=== PATIENT | female | born 1960 | race Caucasian/White ===

== ENCOUNTER 2022-07-15 13:08 | Inpatient (IN) | payer OTHER ==
[~2022-07-15] VITALS: Ht 157.5 cm; Wt 93.0 kg
[2022-07-15] MEDS ORDERED: SODIUM CHLORIDE FLUSH 10 ML SYR IV PRN (13:45)
[2022-07-15 13:50] LABS: BASOPHILS # (AUTO) 0.1 (0.0-0.1); BASOPHILS % 0.7 % (0.0-1.0); EOSINOPHILS # (AUTO) 0.2 (0.0-0.4); EOSINOPHILS % 1.4 % (0.0-6.0); LYMPHOCYTES # (AUTO) 2.1 (1.0-3.2); LYMPHOCYTES % 11.9 % (18.0-39.1); MEAN CORPUSCULAR HEMOGLOBIN 29.3 pg (28-32); MEAN CORPUSCULAR HGB CONC 31.4 g/dL (31-35); MEAN CORPUSCULAR VOLUME 93.1 fL (81-99); MONOCYTES # (AUTO) 0.9 (0.2-0.8); MONOCYTES % 5.1 % (4.4-11.3); NEUTROPHILS # (AUTO) 14.1 (2.1-6.9); NEUTROPHILS % 80.6 % (38.7-80.0); PLATELET COUNT 410 x10e3/uL (140-360); RED BLOOD COUNT 3.76 x10e6/uL (3.6-5.1); RED CELL DISTRIBUTION WIDTH 13.4 % (11.7-14.4)
[2022-07-15 14:01] LABS: ALBUMIN 2.1 g/dL (3.5-5.0); ALBUMIN/GLOBULIN RATIO 0.3 (0.8-2.0); ANION GAP 13.6 mmol/L (8-16); CALCIUM 8.8 mg/dL (8.4-10.2); CREATININE, SERUM 3.2 mg/dL (0.57-1.11); POTASSIUM 4.6 mmol/L (3.5-5.1)
[2022-07-15] MEDS ORDERED: CLOPIDOGREL BISULFATE 300 MG TAB-DO NOT STOCK PO ONE (14:45)
[2022-07-15] MEDS ORDERED: ASPIRIN 81 MG CHEW TAB PO ONE ×2 (14:45→15:00)
[2022-07-15] MEDS ORDERED: CEFTRIAXONE 1 GM VIAL IV ONE (14:45)
[2022-07-15] MEDS ORDERED: CLOPIDOGREL BISULFATE 75 MG TAB PO ONE (14:45)
[2022-07-15] MEDS ORDERED: SODIUM CHLORIDE 0.9% 500ML 500 ML IV ONE (14:45)
[2022-07-15] MEDS ORDERED: SODIUM CHLORIDE FLUSH 10 ML SYR INJ PRN (15:00)
[2022-07-15] MEDS ORDERED: ONDANSETRON HCL INJ 2MG/ML 2ML 2 MG/ML VIAL IV PRN (15:00)
[2022-07-15] MEDS ORDERED: Vancomycin IV 1 GM in SODIUM CHLORIDE 0.9% 250ML 250 ML IV ONE (15:00)
[2022-07-15 15:42] LABS: CREATINE KINASE MB 2.8 ng/mL (0-5.0)
[2022-07-15] MEDS ORDERED: FUROSEMIDE INJ 10 MG/ML 4 ML VIAL IV ONE (17:00)
[2022-07-15 20:00] VITALS: BP 130/63; PULSE 96; RESP 17; TEMP 98.4; O2SAT 98
[2022-07-15] MEDS ORDERED: METOPROLOL TARTRATE INJ 1 MG/ML VIAL IV PRN (23:30)
[2022-07-15] MEDS ORDERED: HYDRALAZINE HCL 20 MG/ML VIAL IV PRN (23:30)
[2022-07-16 00:38] VITALS: BP 148/72; PULSE 96; RESP 17; TEMP 98; O2SAT 98
[2022-07-16 04:53] VITALS: BP 145/75; PULSE 88; RESP 17; TEMP 97.8; O2SAT 96
[2022-07-16 06:01] LABS: CLARITY,URINE SL CLOUDY (CLEAR); COLOR,URINE YELLOW (YELLOW); KETONES,URINE NEGATIVE (NEGATIVE); LEUKOCYTE ESTERASE ,URINE NEGATIVE (NEGATIVE); NITRITE,URINE NEGATIVE (NEGATIVE); PROTEIN,URINE DIPSTICK >=300 (NEGATIVE); URINE UROBILINOGEN 0.2 mg/dL (0.2 - 1)
[2022-07-16 06:02] LABS: BACTERIA,URINE MANY /HPF; EPITHELIAL CELLS,URINE MANY /LPF
[2022-07-16 07:41] LABS: BASOPHILS # (AUTO) 0.1 (0.0-0.1); EOSINOPHILS # (AUTO) 0.3 (0.0-0.4); EOSINOPHILS % 2.3 % (0.0-6.0); HEMATOCRIT 33.1 % (34.2-44.1); HEMOGLOBIN 9.8 g/dL (12.0-16.0); LYMPHOCYTES # (AUTO) 2.7 (1.0-3.2); LYMPHOCYTES % 20.1 % (18.0-39.1); MEAN CORPUSCULAR HEMOGLOBIN 28.2 pg (28-32); MEAN CORPUSCULAR HGB CONC 29.6 g/dL (31-35); MEAN CORPUSCULAR VOLUME 95.1 fL (81-99); MONOCYTES # (AUTO) 0.9 (0.2-0.8); MONOCYTES % 6.6 % (4.4-11.3); NEUTROPHILS # (AUTO) 9.5 (2.1-6.9); NEUTROPHILS % 69.6 % (38.7-80.0); PLATELET COUNT 374 x10e3/uL (140-360); RED BLOOD COUNT 3.48 x10e6/uL (3.6-5.1); RED CELL DISTRIBUTION WIDTH 13.6 % (11.7-14.4)
[2022-07-16 08:06] LABS: CREATINE KINASE MB 2.2 ng/mL (0-5.0)
[2022-07-16 08:08] LABS: CHOL/HDL RATIO 3.4 (3.0-3.6); MAGNESIUM 1.7 MG/DL (1.3-2.1); PHOSPHORUS 4.4 MG/DL (2.3-4.7)
[2022-07-16 08:11] LABS: ALBUMIN 1.8 g/dL (3.5-5.0); ALBUMIN/GLOBULIN RATIO 0.3 (0.8-2.0); ANION GAP 13.3 mmol/L (8-16); CALCIUM 8.4 mg/dL (8.4-10.2); CREATININE, SERUM 3.11 mg/dL (0.57-1.11); POTASSIUM 4.3 mmol/L (3.5-5.1)
[2022-07-16 09:01] VITALS: BP 151/73; PULSE 92; RESP 20; TEMP 97.9; O2SAT 97
[2022-07-16] MEDS: SODIUM BICARBONATE 650 MG TAB PO SCH ×2 (11:30→17:44)
[2022-07-16 12:29] LABS: CREATININE,URINE RANDOM 61.06 mg/dL (47-110)
[2022-07-16 13:02] VITALS: BP 152/77; PULSE 84; RESP 16; TEMP 97.8; O2SAT 99
[2022-07-16 14:15] LABS: TOTAL PROTEIN, URINE 1120.6 mg/dL (1-14)
[2022-07-16] MEDS: FUROSEMIDE 40 MG TAB PO SCH (17:43)
[2022-07-16 20:00] VITALS: BP 152/79; PULSE 98; RESP 17; TEMP 98.9; O2SAT 97
[2022-07-16] MEDS: ATORVASTATIN 40 MG TAB PO SCH (21:21)
[2022-07-16] MEDS ORDERED: DEXTROSE 50% SYRINGE 50 ML IV PRN (22:15)
[2022-07-17] VITALS (7 sets, daily range): BP systolic 136–169; BP diastolic 67–80; PULSE 86–98; RESP 17–21; TEMP 97.7–98.7; O2SAT 96–100
[2022-07-17 06:01] LABS: BASOPHILS # (AUTO) 0.1 (0.0-0.1); BASOPHILS % 0.7 % (0.0-1.0); EOSINOPHILS # (AUTO) 0.3 (0.0-0.4); EOSINOPHILS % 2.2 % (0.0-6.0); HEMATOCRIT 29.1 % (34.2-44.1); HEMOGLOBIN 8.9 g/dL (12.0-16.0); LYMPHOCYTES # (AUTO) 3.2 (1.0-3.2); LYMPHOCYTES % 23.7 % (18.0-39.1); MEAN CORPUSCULAR HEMOGLOBIN 28.3 pg (28-32); MEAN CORPUSCULAR HGB CONC 30.6 g/dL (31-35); MEAN CORPUSCULAR VOLUME 92.7 fL (81-99); MONOCYTES % 7.1 % (4.4-11.3); NEUTROPHILS # (AUTO) 8.9 (2.1-6.9); NEUTROPHILS % 65.9 % (38.7-80.0); PLATELET COUNT 350 x10e3/uL (140-360); RED BLOOD COUNT 3.14 x10e6/uL (3.6-5.1); RED CELL DISTRIBUTION WIDTH 13.3 % (11.7-14.4)
[2022-07-17 06:30] LABS: ANION GAP 13.2 mmol/L (8-16); CALCIUM 8.1 mg/dL (8.4-10.2); CREATININE, SERUM 3.24 mg/dL (0.57-1.11); POTASSIUM 4.2 mmol/L (3.5-5.1)
[2022-07-17] MEDS: FUROSEMIDE 40 MG TAB PO SCH (10:13)
[2022-07-17] MEDS: SODIUM BICARBONATE 650 MG TAB PO SCH ×2 (10:13→16:41)
[2022-07-17] MEDS: ASPIRIN 81 MG ENTERIC COATED PO SCH (10:13)
[2022-07-17] MEDS: LIDOCAINE 4% PATCH TP SCH (10:14)
[2022-07-17] MEDS: INSULIN REGULAR, HUMAN 100 UNIT/1 ML SQ SCH ×2 (16:16→21:30)
[2022-07-17] MEDS: ATORVASTATIN 40 MG TAB PO SCH (21:25)
[2022-07-18] VITALS (9 sets, daily range): BP systolic 146–166; BP diastolic 70–86; PULSE 68–100; RESP 17–20; TEMP 98.3–98.8; O2SAT 95–100
[2022-07-18] MEDS: INSULIN REGULAR, HUMAN 100 UNIT/1 ML SQ SCH ×4 (08:22→20:39)
[2022-07-18] MEDS: LIDOCAINE 4% PATCH TP SCH (08:31)
[2022-07-18] MEDS: ASPIRIN 81 MG ENTERIC COATED PO SCH (08:32)
[2022-07-18] MEDS: FUROSEMIDE 40 MG TAB PO SCH (08:32)
[2022-07-18] MEDS: AMLODIPINE BESYLATE 5 MG TAB PO SCH (08:32)
[2022-07-18] MEDS: SODIUM BICARBONATE 650 MG TAB PO SCH ×2 (08:32→17:27)
[2022-07-18 10:22] LABS: ANION GAP 16.1 mmol/L (8-16); CALCIUM 8.6 mg/dL (8.4-10.2); CREATININE, SERUM 3.05 mg/dL (0.57-1.11); POTASSIUM 4.1 mmol/L (3.5-5.1)
[2022-07-18] MEDS: ATORVASTATIN 40 MG TAB PO SCH (20:39)
[2022-07-19] VITALS (10 sets, daily range): BP systolic 120–158; BP diastolic 52–78; PULSE 71–91; RESP 16–20; TEMP 97.7–99.7; O2SAT 92–99
[2022-07-19] MEDS ORDERED: LISINOPRIL10 MG PO (02:51)
[2022-07-19] MEDS ORDERED: LIPITOR20 MG PO (02:51)
[2022-07-19] MEDS ORDERED: PLAVIX75 MG PO (02:51)
[2022-07-19 06:02] LABS: BASOPHILS # (AUTO) 0.1 (0.0-0.1); BASOPHILS % 1.2 % (0.0-1.0); EOSINOPHILS # (AUTO) 0.3 (0.0-0.4); EOSINOPHILS % 2.7 % (0.0-6.0); HEMATOCRIT 30.5 % (34.2-44.1); HEMOGLOBIN 9.5 g/dL (12.0-16.0); LYMPHOCYTES # (AUTO) 2.5 (1.0-3.2); LYMPHOCYTES % 20.6 % (18.0-39.1); MEAN CORPUSCULAR HGB CONC 31.1 g/dL (31-35); MONOCYTES # (AUTO) 0.7 (0.2-0.8); MONOCYTES % 5.8 % (4.4-11.3); NEUTROPHILS # (AUTO) 8.4 (2.1-6.9); NEUTROPHILS % 69.4 % (38.7-80.0); PLATELET COUNT 410 x10e3/uL (140-360); RED BLOOD COUNT 3.28 x10e6/uL (3.6-5.1); RED CELL DISTRIBUTION WIDTH 13.2 % (11.7-14.4)
[2022-07-19 06:37] LABS: ANION GAP 12.9 mmol/L (8-16); CALCIUM 8.1 mg/dL (8.4-10.2); CREATININE, SERUM 3.35 mg/dL (0.57-1.11); POTASSIUM 3.9 mmol/L (3.5-5.1)
[2022-07-19] MEDS: INSULIN REGULAR, HUMAN 100 UNIT/1 ML SQ SCH ×4 (07:55→21:04)
[2022-07-19] MEDS: ASPIRIN 81 MG ENTERIC COATED PO SCH (08:01)
[2022-07-19] MEDS: SODIUM BICARBONATE 650 MG TAB PO SCH ×2 (08:02→17:06)
[2022-07-19] MEDS: AMLODIPINE BESYLATE 5 MG TAB PO SCH (08:02)
[2022-07-19] MEDS: FUROSEMIDE 40 MG TAB PO SCH (08:02)
[2022-07-19] MEDS: LIDOCAINE 4% PATCH TP SCH (08:02)
[2022-07-19] MEDS: ATORVASTATIN 40 MG TAB PO SCH (20:58)
[2022-07-20] VITALS (8 sets, daily range): BP systolic 140–154; BP diastolic 58–87; PULSE 76–112; RESP 18–21; TEMP 98.3–98.5; O2SAT 95–99
[2022-07-20 06:38] LABS: ANION GAP 14.1 mmol/L (8-16); CALCIUM 8.3 mg/dL (8.4-10.2); CREATININE, SERUM 3.5 mg/dL (0.57-1.11); POTASSIUM 4.1 mmol/L (3.5-5.1)
[2022-07-20] MEDS: INSULIN REGULAR, HUMAN 100 UNIT/1 ML SQ SCH ×4 (07:30→21:08)
[2022-07-20] MEDS: SODIUM BICARBONATE 650 MG TAB PO SCH ×2 (09:00→17:00)
[2022-07-20] MEDS: AMLODIPINE BESYLATE 10 MG TAB PO SCH (09:00)
[2022-07-20] MEDS: FUROSEMIDE 40 MG TAB PO SCH (09:00)
[2022-07-20] MEDS: CARVEDILOL 3.125 MG TAB PO SCH ×2 (09:00→17:00)
[2022-07-20] MEDS: ASPIRIN 81 MG ENTERIC COATED PO SCH (09:00)
[2022-07-20] MEDS: LIDOCAINE 4% PATCH TP SCH (09:36)
[2022-07-20 11:09] LABS: TOTAL PROTEIN 24HR, URINE 13123.9 mg/24hr (50-100); TOTAL PROTEIN, URINE 905.1 mg/dL (1-14)
[2022-07-20] MEDS ORDERED: REGADENOSON 0.4 MG/5 ML SYR IV ONE (11:47)
[2022-07-20] MEDS: POLYETHYLENE GLYCOL 3350 17 GM PACK PO SCH (18:45)
[2022-07-20] MEDS: ATORVASTATIN 40 MG TAB PO SCH (21:06)
[2022-07-21] VITALS (9 sets, daily range): BP systolic 104–149; BP diastolic 48–96; PULSE 73–104; RESP 17–21; TEMP 97.6–98.6; O2SAT 95–100
[2022-07-21] MEDS: INSULIN REGULAR, HUMAN 100 UNIT/1 ML SQ SCH ×4 (07:30→21:16)
[2022-07-21] MEDS: POLYETHYLENE GLYCOL 3350 17 GM PACK PO SCH ×2 (09:00→16:58)
[2022-07-21] MEDS: LIDOCAINE 4% PATCH TP SCH (10:02)
[2022-07-21] MEDS: SODIUM BICARBONATE 650 MG TAB PO SCH ×2 (10:03→16:58)
[2022-07-21] MEDS: CARVEDILOL 3.125 MG TAB PO SCH ×2 (10:03→16:57)
[2022-07-21] MEDS: FUROSEMIDE 40 MG TAB PO SCH (10:04)
[2022-07-21] MEDS: AMLODIPINE BESYLATE 10 MG TAB PO SCH (10:04)
[2022-07-21] MEDS: ASPIRIN 81 MG ENTERIC COATED PO SCH (10:04)
[2022-07-21] MEDS: ATORVASTATIN 40 MG TAB PO SCH (21:13)
[2022-07-22] VITALS (9 sets, daily range): BP systolic 110–150; BP diastolic 47–74; PULSE 74–82; RESP 14–20; TEMP 97.7–98.7; O2SAT 97–100
[2022-07-22 06:07] LABS: ANION GAP 19.2 mmol/L (8-16); CALCIUM 8.3 mg/dL (8.4-10.2); CREATININE, SERUM 3.45 mg/dL (0.57-1.11); POTASSIUM 4.2 mmol/L (3.5-5.1)
[2022-07-22] MEDS: POLYETHYLENE GLYCOL 3350 17 GM PACK PO SCH ×2 (08:26→16:55)
[2022-07-22] MEDS: AMLODIPINE BESYLATE 5 MG TAB PO SCH (08:26)
[2022-07-22] MEDS: LIDOCAINE 4% PATCH TP SCH (08:26)
[2022-07-22] MEDS: CARVEDILOL 3.125 MG TAB PO SCH ×2 (08:27→16:49)
[2022-07-22] MEDS: SODIUM BICARBONATE 650 MG TAB PO SCH ×2 (08:27→16:48)
[2022-07-22] MEDS: ASPIRIN 81 MG ENTERIC COATED PO SCH (08:27)
[2022-07-22] MEDS: INSULIN REGULAR, HUMAN 100 UNIT/1 ML SQ SCH ×4 (08:36→21:00)
[2022-07-22] MEDS ORDERED: ACETAMINOPHEN 325 MG TAB PO PRN (20:15)
[2022-07-22] MEDS: ACETAMINOPHEN/CODEINE 300MG - 30MG TAB PO PRN (20:54)
[2022-07-22] MEDS: ATORVASTATIN 40 MG TAB PO SCH (20:54)
[2022-07-23] VITALS (7 sets, daily range): BP systolic 106–146; BP diastolic 45–73; PULSE 67–77; RESP 17–20; TEMP 97.5–98.3; O2SAT 96–100
[2022-07-23 06:06] LABS: BASOPHILS # (AUTO) 0.1 (0.0-0.1); BASOPHILS % 0.9 % (0.0-1.0); EOSINOPHILS # (AUTO) 0.3 (0.0-0.4); EOSINOPHILS % 2.8 % (0.0-6.0); HEMATOCRIT 28.5 % (34.2-44.1); HEMOGLOBIN 8.4 g/dL (12.0-16.0); LYMPHOCYTES # (AUTO) 3.5 (1.0-3.2); LYMPHOCYTES % 31.7 % (18.0-39.1); MEAN CORPUSCULAR HEMOGLOBIN 27.5 pg (28-32); MEAN CORPUSCULAR HGB CONC 29.5 g/dL (31-35); MEAN CORPUSCULAR VOLUME 93.1 fL (81-99); MONOCYTES # (AUTO) 0.7 (0.2-0.8); MONOCYTES % 5.9 % (4.4-11.3); NEUTROPHILS # (AUTO) 6.5 (2.1-6.9); NEUTROPHILS % 58.2 % (38.7-80.0); PLATELET COUNT 380 x10e3/uL (140-360); RED BLOOD COUNT 3.06 x10e6/uL (3.6-5.1); RED CELL DISTRIBUTION WIDTH 13.4 % (11.7-14.4)
[2022-07-23 06:30] LABS: ALBUMIN 1.9 g/dL (3.5-5.0); ALBUMIN/GLOBULIN RATIO 0.4 (0.8-2.0); ANION GAP 16.1 mmol/L (8-16); CREATININE, SERUM 3.31 mg/dL (0.57-1.11); POTASSIUM 4.1 mmol/L (3.5-5.1)
[2022-07-23] MEDS: INSULIN REGULAR, HUMAN 100 UNIT/1 ML SQ SCH ×4 (07:30→20:59)
[2022-07-23] MEDS: LIDOCAINE 4% PATCH TP SCH (09:34)
[2022-07-23] MEDS: SODIUM BICARBONATE 650 MG TAB PO SCH ×2 (09:35→17:23)
[2022-07-23] MEDS: ASPIRIN 81 MG ENTERIC COATED PO SCH (09:35)
[2022-07-23] MEDS: ACETAMINOPHEN/CODEINE 300MG - 30MG TAB PO PRN (09:35)
[2022-07-23] MEDS: POLYETHYLENE GLYCOL 3350 17 GM PACK PO SCH ×2 (09:35→17:23)
[2022-07-23] MEDS: AMLODIPINE BESYLATE 5 MG TAB PO SCH (09:36)
[2022-07-23] MEDS: CARVEDILOL 3.125 MG TAB PO SCH ×2 (09:36→17:23)
[2022-07-23] MEDS: ONDANSETRON HCL 4 MG ORAL DISINTEGRATING TAB PO PRN (11:42)
[2022-07-23 20:48] LABS: % IRON SATURATION 11 % (15-50); IRON 28 ug/dL (50-170); TOTAL IRON BINDING CAPACITY 252 ug/dL (261-478); TRANSFERRIN 180 mg/dL (180-382)
[2022-07-23] MEDS: ATORVASTATIN 40 MG TAB PO SCH (20:59)
[2022-07-24] VITALS (7 sets, daily range): BP systolic 114–153; BP diastolic 52–73; PULSE 71–81; RESP 17–18; TEMP 97.8–98.7; O2SAT 93–100
[2022-07-24] MEDS: INSULIN REGULAR, HUMAN 100 UNIT/1 ML SQ SCH ×4 (07:30→21:00)
[2022-07-24 08:58] LABS: BASOPHILS # (AUTO) 0.1 (0.0-0.1); BASOPHILS % 0.9 % (0.0-1.0); EOSINOPHILS # (AUTO) 0.2 (0.0-0.4); EOSINOPHILS % 1.7 % (0.0-6.0); HEMATOCRIT 31.9 % (34.2-44.1); HEMOGLOBIN 9.9 g/dL (12.0-16.0); LYMPHOCYTES # (AUTO) 2.4 (1.0-3.2); LYMPHOCYTES % 18.6 % (18.0-39.1); MEAN CORPUSCULAR HEMOGLOBIN 28.1 pg (28-32); MEAN CORPUSCULAR VOLUME 90.6 fL (81-99); MONOCYTES # (AUTO) 0.6 (0.2-0.8); NEUTROPHILS # (AUTO) 9.4 (2.1-6.9); NEUTROPHILS % 73.5 % (38.7-80.0); PLATELET COUNT 471 x10e3/uL (140-360); RED BLOOD COUNT 3.52 x10e6/uL (3.6-5.1); RED CELL DISTRIBUTION WIDTH 13.5 % (11.7-14.4)
[2022-07-24] MEDS: LIDOCAINE 4% PATCH TP SCH (09:17)
[2022-07-24] MEDS: ASPIRIN 81 MG ENTERIC COATED PO SCH (09:18)
[2022-07-24] MEDS: POLYETHYLENE GLYCOL 3350 17 GM PACK PO SCH ×2 (09:18→16:51)
[2022-07-24] MEDS: AMLODIPINE BESYLATE 5 MG TAB PO SCH (09:18)
[2022-07-24] MEDS: SODIUM BICARBONATE 650 MG TAB PO SCH ×2 (09:18→16:51)
[2022-07-24] MEDS: ONDANSETRON HCL 4 MG ORAL DISINTEGRATING TAB PO PRN (09:18)
[2022-07-24] MEDS: CARVEDILOL 3.125 MG TAB PO SCH ×2 (09:18→16:51)
[2022-07-24 09:54] LABS: PHOSPHORUS 5.6 MG/DL (2.3-4.7)
[2022-07-24 09:56] LABS: ALBUMIN 2.2 g/dL (3.5-5.0); ALBUMIN/GLOBULIN RATIO 0.4 (0.8-2.0); ANION GAP 15.7 mmol/L (8-16); CALCIUM 8.8 mg/dL (8.4-10.2); CREATININE, SERUM 3.27 mg/dL (0.57-1.11); POTASSIUM 4.7 mmol/L (3.5-5.1)
[2022-07-24] MEDS ORDERED: ONDANSETRON HCL INJ 2MG/ML 2ML 2 MG/ML VIAL IV PRN (11:45)
[2022-07-24] MEDS: IRON SUCROSE 100 MG in SODIUM CHLORIDE 0.9% 100 ML IV SCH (12:13)
[2022-07-24] MEDS: ATORVASTATIN 40 MG TAB PO SCH (21:00)
[2022-07-25] VITALS (7 sets, daily range): BP systolic 113–148; BP diastolic 50–62; PULSE 68–82; RESP 16–21; TEMP 97.2–98.7; O2SAT 95–100
[2022-07-25] MEDS: INSULIN REGULAR, HUMAN 100 UNIT/1 ML SQ SCH ×4 (07:30→21:00)
[2022-07-25] MEDS: POLYETHYLENE GLYCOL 3350 17 GM PACK PO SCH ×2 (09:00→17:00)
[2022-07-25] MEDS: IRON SUCROSE 100 MG in SODIUM CHLORIDE 0.9% 100 ML IV SCH (09:23)
[2022-07-25] MEDS: SODIUM BICARBONATE 650 MG TAB PO SCH ×2 (09:24→17:16)
[2022-07-25] MEDS: ASPIRIN 81 MG ENTERIC COATED PO SCH (09:24)
[2022-07-25] MEDS: AMLODIPINE BESYLATE 5 MG TAB PO SCH (09:24)
[2022-07-25] MEDS: CARVEDILOL 3.125 MG TAB PO SCH ×2 (09:25→17:17)
[2022-07-25] MEDS: LIDOCAINE 4% PATCH TP SCH (09:25)
[2022-07-25] MEDS: ATORVASTATIN 40 MG TAB PO SCH (21:16)
[2022-07-26] VITALS (8 sets, daily range): BP systolic 119–159; BP diastolic 54–91; PULSE 66–78; RESP 18–22; TEMP 97.6–98.4; O2SAT 91–97
[2022-07-26 05:17] LABS: BASOPHILS # (AUTO) 0.1 (0.0-0.1); EOSINOPHILS # (AUTO) 0.3 (0.0-0.4); EOSINOPHILS % 2.8 % (0.0-6.0); HEMATOCRIT 30.2 % (34.2-44.1); HEMOGLOBIN 9.2 g/dL (12.0-16.0); LYMPHOCYTES # (AUTO) 2.9 (1.0-3.2); LYMPHOCYTES % 27.3 % (18.0-39.1); MEAN CORPUSCULAR HGB CONC 30.5 g/dL (31-35); MEAN CORPUSCULAR VOLUME 92.1 fL (81-99); MONOCYTES # (AUTO) 0.8 (0.2-0.8); MONOCYTES % 7.1 % (4.4-11.3); NEUTROPHILS # (AUTO) 6.5 (2.1-6.9); NEUTROPHILS % 61.3 % (38.7-80.0); PLATELET COUNT 406 x10e3/uL (140-360); RED BLOOD COUNT 3.28 x10e6/uL (3.6-5.1); RED CELL DISTRIBUTION WIDTH 13.5 % (11.7-14.4)
[2022-07-26 05:42] LABS: ANION GAP 14.4 mmol/L (8-16); CALCIUM 8.6 mg/dL (8.4-10.2); CREATININE, SERUM 3.3 mg/dL (0.57-1.11); POTASSIUM 4.4 mmol/L (3.5-5.1)
[2022-07-26] MEDS: INSULIN REGULAR, HUMAN 100 UNIT/1 ML SQ SCH ×5 (07:30→21:48)
[2022-07-26] MEDS: ASPIRIN 81 MG ENTERIC COATED PO SCH (08:49)
[2022-07-26] MEDS: IRON SUCROSE 100 MG in SODIUM CHLORIDE 0.9% 100 ML IV SCH (08:49)
[2022-07-26] MEDS: SODIUM BICARBONATE 650 MG TAB PO SCH ×2 (08:49→17:32)
[2022-07-26] MEDS: LIDOCAINE 4% PATCH TP SCH (08:50)
[2022-07-26] MEDS: CARVEDILOL 3.125 MG TAB PO SCH ×2 (08:50→17:33)
[2022-07-26] MEDS: AMLODIPINE BESYLATE 5 MG TAB PO SCH (08:50)
[2022-07-26 09:20] LABS: INR 1.03
[2022-07-26] MEDS: ATORVASTATIN 40 MG TAB PO SCH (21:09)
[2022-07-27 00:37] VITALS: BP 138/56; PULSE 70; RESP 18; TEMP 97.6; O2SAT 97
[2022-07-27 04:26] VITALS: BP 144/74; PULSE 72; RESP 21; TEMP 98.3; O2SAT 94
[2022-07-27 04:55] LABS: BASOPHILS # (AUTO) 0.1 (0.0-0.1); EOSINOPHILS # (AUTO) 0.3 (0.0-0.4); EOSINOPHILS % 2.9 % (0.0-6.0); HEMATOCRIT 30.1 % (34.2-44.1); HEMOGLOBIN 9.2 g/dL (12.0-16.0); LYMPHOCYTES # (AUTO) 3.1 (1.0-3.2); LYMPHOCYTES % 28.6 % (18.0-39.1); MEAN CORPUSCULAR HEMOGLOBIN 28.2 pg (28-32); MEAN CORPUSCULAR HGB CONC 30.6 g/dL (31-35); MEAN CORPUSCULAR VOLUME 92.3 fL (81-99); MONOCYTES # (AUTO) 0.7 (0.2-0.8); MONOCYTES % 6.7 % (4.4-11.3); NEUTROPHILS # (AUTO) 6.6 (2.1-6.9); NEUTROPHILS % 60.4 % (38.7-80.0); PLATELET COUNT 396 x10e3/uL (140-360); RED BLOOD COUNT 3.26 x10e6/uL (3.6-5.1); RED CELL DISTRIBUTION WIDTH 13.4 % (11.7-14.4)
[2022-07-27 05:14] LABS: ANION GAP 12.2 mmol/L (8-16); CALCIUM 8.3 mg/dL (8.4-10.2); CREATININE, SERUM 2.97 mg/dL (0.57-1.11); POTASSIUM 4.2 mmol/L (3.5-5.1)
[2022-07-27] MEDS: INSULIN REGULAR, HUMAN 100 UNIT/1 ML SQ SCH ×3 (07:30→16:15)
[2022-07-27 08:00] VITALS: BP 153/74; PULSE 80; RESP 19; TEMP 98.8; O2SAT 97
[2022-07-27 08:06] VITALS: BP 153/74; PULSE 80; RESP 19; TEMP 98.8; O2SAT 97
[2022-07-27] MEDS: LIDOCAINE 4% PATCH TP SCH (09:50)
[2022-07-27] MEDS: SODIUM BICARBONATE 650 MG TAB PO SCH ×2 (09:50→16:58)
[2022-07-27] MEDS: ASPIRIN 81 MG ENTERIC COATED PO SCH (09:51)
[2022-07-27] MEDS: AMLODIPINE BESYLATE 5 MG TAB PO SCH (09:51)
[2022-07-27] MEDS: CARVEDILOL 3.125 MG TAB PO SCH ×2 (09:51→16:59)
[2022-07-27] MEDS ORDERED: NORVASC5 MG PO (11:06)
[2022-07-27] MEDS ORDERED: COREG3.125 MG PO (11:06)
[2022-07-27] MEDS ORDERED: ACETAMINOPHEN325 M1 PO (11:06)
[2022-07-27] MEDS ORDERED: ONDANSETRON ODT4 MG PO (11:06)
[2022-07-27] MEDS ORDERED: SODIUM BICARBO650 MG PO (11:06)
[2022-07-27] MEDS ORDERED: ASPIRIN EC81 MG PO (11:06)
[2022-07-27] MEDS ORDERED: HUMULIN R100 UNIT/2 SQ (11:06)
[2022-07-27] MEDS ORDERED: ATORVASTATIN CA40 MG PO (11:06)
[2022-07-27] MEDS ORDERED: LIDOCAINE1 EACH TP (11:10)
[2022-07-27 11:26] VITALS: BP 144/58; PULSE 87; RESP 20; TEMP 98.5; O2SAT 100
[2022-07-27] MEDS ORDERED: LEVEMIR100 UNIT/1 SC (15:32)
[2022-07-27] MEDS ORDERED: NOVOLOG100 UNIT/1 SC (15:32)
[2022-07-27 17:52] VITALS: BP 139/69; PULSE 79; RESP 16; TEMP 98.4; O2SAT 97
== END 2022-07-27 18:40 | disposition home or self-care (01) | DRG 280 ==
LOC: ER 13:21 → ERHOLD 15:08 → MED/SURG2 18:10
PROVIDERS: ADMIT Internal Medicine; ATTEND Internal Medicine
DX: I21.A1 Myocardial infarction type 2 (principal); I50.21 Acute systolic (congestive) heart failure; L03.115 Cellulitis of right lower limb; N17.9 Acute kidney failure, unspecified; N18.4 Chronic kidney disease, stage 4 (severe); E87.20 Acidosis, unspecified; I13.10 Hypertensive heart and chronic kidney disease without heart failure, with stage 1 through stage 4 chronic kidney disease, or unspecified chronic kidney disease; E11.22 Type 2 diabetes mellitus with diabetic chronic kidney disease; Z79.4 Long term (current) use of insulin; D63.1 Anemia in chronic kidney disease; Z89.511 Acquired absence of right leg below knee; R31.29 Other microscopic hematuria; Z91.148 Patient's other noncompliance with medication regimen for other reason; E11.65 Type 2 diabetes mellitus with hyperglycemia; E11.42 Type 2 diabetes mellitus with diabetic polyneuropathy; Z99.3 Dependence on wheelchair
CPT/HCPCS: 0223U; 36415; 71045; 74018; 74470; 76770; 76882; 78452; 80048; 80053; 80061; 81001; 81050; 82550; 82553; 82570; 82948; 83036; 83516; 83540; 83605; 83735; 83880; 84100; 84156; 84165; 84466; 84484; 85025; 85597; 85610; 85613; 85730; 86021; 86039; 86160; 86225; 86235; 86255; 86256; 86376; 86706; 87040; 87340; 93005; 93017; 93306; 94760; 94799; 96372; 99284; A9502; J0696; J1756; J2405; J7040; J7050; Q0162

== ENCOUNTER 2022-08-07 10:27 | Inpatient (IN) | payer SELFPAY ==
[2022-08-07] VITALS (11 sets, daily range): BP systolic 134–173; BP diastolic 52–96; PULSE 86–92; RESP 16–26; TEMP 97.8–98.6; O2SAT 95–100
[~2022-08-07] VITALS: Ht 157.5 cm; Wt 100.7 kg
[~2022-08-07 10:27] MED LIST: ACETAMINOPHEN325 M1 PO; ASPIRIN EC81 MG PO; ATORVASTATIN CA40 MG PO; COREG3.125 MG PO; HUMULIN R100 UNIT/2 SQ; LEVEMIR100 UNIT/1 SC; LIDOCAINE1 EACH TP; LIPITOR20 MG PO; LISINOPRIL10 MG PO; NORVASC5 MG PO; NOVOLOG100 UNIT/1 SC; ONDANSETRON ODT4 MG PO; PLAVIX75 MG PO; SODIUM BICARBO650 MG PO
[2022-08-07] MEDS ORDERED: SODIUM CHLORIDE FLUSH 10 ML SYR IV PRN (10:45)
[2022-08-07 11:02] LABS: BASOPHILS # (AUTO) 0.1 (0.0-0.1); BASOPHILS % 0.9 % (0.0-1.0); EOSINOPHILS # (AUTO) 0.2 (0.0-0.4); EOSINOPHILS % 2.4 % (0.0-6.0); HEMATOCRIT 31.2 % (34.2-44.1); HEMOGLOBIN 9.3 g/dL (12.0-16.0); LYMPHOCYTES # (AUTO) 2.4 (1.0-3.2); LYMPHOCYTES % 23.5 % (18.0-39.1); MEAN CORPUSCULAR HEMOGLOBIN 27.7 pg (28-32); MEAN CORPUSCULAR HGB CONC 29.8 g/dL (31-35); MEAN CORPUSCULAR VOLUME 92.9 fL (81-99); MONOCYTES # (AUTO) 0.6 (0.2-0.8); MONOCYTES % 5.8 % (4.4-11.3); NEUTROPHILS # (AUTO) 6.8 (2.1-6.9); NEUTROPHILS % 67.2 % (38.7-80.0); PLATELET COUNT 270 x10e3/uL (140-360); RED BLOOD COUNT 3.36 x10e6/uL (3.6-5.1); RED CELL DISTRIBUTION WIDTH 14.3 % (11.7-14.4)
[2022-08-07 11:06] LABS: CLARITY,URINE SL CLOUDY (CLEAR); COLOR,URINE YELLOW (YELLOW)
[2022-08-07 11:08] LABS: KETONES,URINE NEGATIVE (NEGATIVE); LEUKOCYTE ESTERASE ,URINE NEGATIVE (NEGATIVE); NITRITE,URINE NEGATIVE (NEGATIVE); PROTEIN,URINE DIPSTICK >=300 (NEGATIVE); URINE UROBILINOGEN 0.2 mg/dL (0.2 - 1)
[2022-08-07 11:15] LABS: BACTERIA,URINE FEW /HPF; EPITHELIAL CELLS,URINE FEW /LPF; RBC,URINE 0-5 /HPF (0-5); WBC,URINE (MAN) 0-5 /HPF (0-5)
[2022-08-07 11:16] LABS: AMORPHOUS SEDIMENT,URINE FEW (FEW)
[2022-08-07 11:27] LABS: ALANINE AMINOTRANSFERASE 10 IU/L (0-55); ALBUMIN 2.4 g/dL (3.5-5.0); ALBUMIN/GLOBULIN RATIO 0.4 (0.8-2.0); ALKALINE PHOSPHATASE 124 IU/L (40-150); ANION GAP 15.6 mmol/L (8-16); BLOOD UREA NITROGEN 49 mg/dL (7-26); BUN/CREATININE RATIO 15 (6-25); CALCIUM 8.6 mg/dL (8.4-10.2); CARBON DIOXIDE 15 mmol/L (22-29); CHLORIDE 114 mmol/L (98-107); CREATININE, SERUM 3.27 mg/dL (0.57-1.11); GLUCOSE 119 mg/dL (74-118); POTASSIUM 4.6 mmol/L (3.5-5.1); SODIUM 140 mmol/L (136-145)
[2022-08-07] MEDS ORDERED: ASPIRIN 81 MG CHEW TAB PO ONE (11:45)
[2022-08-07] MEDS ORDERED: SODIUM CHLORIDE FLUSH 10 ML SYR INJ PRN (12:45)
[2022-08-07] MEDS ORDERED: FUROSEMIDE INJ 10 MG/ML 4 ML VIAL IV ONE (14:00)
[2022-08-07 15:22] LABS: ABG PH 7.29 (7.35-7.45)
[2022-08-07 15:23] LABS: ABG HCO3 16 mmol/L (22-26); ABG PCO2 33 mmHg (35-45); ABG PO2 65 mmHg (80-105); ABG TCO2 17
[2022-08-07] MEDS ORDERED: ALBUTEROL SULF 0.083% NEB SOLN 3 ML NEB NEB PRN (23:00)
[2022-08-07] MEDS ORDERED: ZOLPIDEM TARTRATE 5 MG TAB PO PRN (23:00)
[2022-08-07] MEDS ORDERED: POTASSIUM CHLORIDE 20 MEQ TAB CR PO PRN (23:00)
[2022-08-07] MEDS ORDERED: DEXTROSE 50% SYRINGE 50 ML IV PRN (23:00)
[2022-08-07] MEDS ORDERED: DOCUSATE SODIUM 100 MG CAP PO PRN (23:00)
[2022-08-07] MEDS ORDERED: HYDROCODONE/APAP 5MG-325MG TAB PO PRN (23:00)
[2022-08-07] MEDS ORDERED: IPRATROPIUM BROMIDE 0.02% 2.5 ML NEB NEB PRN (23:00)
[2022-08-08] VITALS (21 sets, daily range): BP systolic 102–150; BP diastolic 44–68; PULSE 69–92; RESP 10–24; TEMP 97.2–98.5; O2SAT 91–100
[2022-08-08] MEDS: ONDANSETRON HCL INJ 2MG/ML 2ML 2 MG/ML VIAL IV PRN (03:33)
[2022-08-08] MEDS: Morphine 2mg Syringe 2 MG/ML SYR IV PRN (04:15)
[2022-08-08] MEDS ORDERED: FUROSEMIDE INJ 10 MG/ML 4 ML VIAL ONE (05:13)
[2022-08-08 05:19] LABS: BASOPHILS # (AUTO) 0.2 (0.0-0.1); BASOPHILS % 1.4 % (0.0-1.0); EOSINOPHILS # (AUTO) 0.3 (0.0-0.4); EOSINOPHILS % 2.7 % (0.0-6.0); HEMATOCRIT 30.5 % (34.2-44.1); HEMOGLOBIN 9.1 g/dL (12.0-16.0); LYMPHOCYTES # (AUTO) 2.1 (1.0-3.2); LYMPHOCYTES % 19.5 % (18.0-39.1); MEAN CORPUSCULAR HEMOGLOBIN 28.2 pg (28-32); MEAN CORPUSCULAR HGB CONC 29.8 g/dL (31-35); MEAN CORPUSCULAR VOLUME 94.4 fL (81-99); MONOCYTES # (AUTO) 0.6 (0.2-0.8); MONOCYTES % 5.5 % (4.4-11.3); NEUTROPHILS # (AUTO) 7.6 (2.1-6.9); NEUTROPHILS % 70.6 % (38.7-80.0); PLATELET COUNT 343 x10e3/uL (140-360); RED BLOOD COUNT 3.23 x10e6/uL (3.6-5.1)
[2022-08-08] MEDS ORDERED: FUROSEMIDE INJ 10 MG/ML 4 ML VIAL IV ONE ×2 (06:00→11:45)
[2022-08-08 06:01] LABS: ALBUMIN 2.2 g/dL (3.5-5.0); ALBUMIN/GLOBULIN RATIO 0.4 (0.8-2.0); ANION GAP 15.5 mmol/L (8-16); CALCIUM 8.4 mg/dL (8.4-10.2); CREATININE, SERUM 3.22 mg/dL (0.57-1.11); POTASSIUM 4.5 mmol/L (3.5-5.1)
[2022-08-08 06:34] LABS: % IRON SATURATION 13 % (15-50); IRON 32 ug/dL (50-170); TOTAL IRON BINDING CAPACITY 246 ug/dL (261-478); TRANSFERRIN 176 mg/dL (180-382)
[2022-08-08] MEDS ORDERED: INSULIN GLARGINE 100 UNITS/ML VIAL SQ SCH (07:00)
[2022-08-08] MEDS: INSULIN LISPRO 100 UNIT/1 ML 3ML VIAL SQ SCH ×4 (07:30→20:20)
[2022-08-08] MEDS: CARVEDILOL 3.125 MG TAB PO SCH ×2 (11:29→17:00)
[2022-08-08] MEDS: AMLODIPINE BESYLATE 5 MG TAB PO SCH (11:29)
[2022-08-08] MEDS: INSULIN GLARGINE 100 UNITS/ML VIAL SQ SCH ×2 (11:31→20:24)
[2022-08-08 15:55] LABS: ANION GAP 13.5 mmol/L (8-16); CREATININE, SERUM 3.27 mg/dL (0.57-1.11); POTASSIUM 4.5 mmol/L (3.5-5.1)
[2022-08-08] MEDS: ATORVASTATIN 40 MG TAB PO SCH (20:19)
[2022-08-09] VITALS (9 sets, daily range): BP systolic 112–141; BP diastolic 47–66; PULSE 69–82; RESP 16–22; TEMP 97.5–98.7; O2SAT 92–97
[2022-08-09 06:57] LABS: BASOPHILS # (AUTO) 0.1 (0.0-0.1); BASOPHILS % 0.9 % (0.0-1.0); EOSINOPHILS # (AUTO) 0.4 (0.0-0.4); EOSINOPHILS % 4.1 % (0.0-6.0); HEMATOCRIT 28.2 % (34.2-44.1); HEMOGLOBIN 8.5 g/dL (12.0-16.0); LYMPHOCYTES # (AUTO) 2.9 (1.0-3.2); LYMPHOCYTES % 30.3 % (18.0-39.1); MEAN CORPUSCULAR HEMOGLOBIN 27.8 pg (28-32); MEAN CORPUSCULAR HGB CONC 30.1 g/dL (31-35); MEAN CORPUSCULAR VOLUME 92.2 fL (81-99); MONOCYTES # (AUTO) 0.8 (0.2-0.8); MONOCYTES % 7.9 % (4.4-11.3); NEUTROPHILS # (AUTO) 5.5 (2.1-6.9); NEUTROPHILS % 56.6 % (38.7-80.0); PLATELET COUNT 307 x10e3/uL (140-360); RED BLOOD COUNT 3.06 x10e6/uL (3.6-5.1); RED CELL DISTRIBUTION WIDTH 14.4 % (11.7-14.4)
[2022-08-09 07:24] LABS: ALBUMIN 2.1 g/dL (3.5-5.0); ALBUMIN/GLOBULIN RATIO 0.4 (0.8-2.0); ANION GAP 12.6 mmol/L (8-16); CALCIUM 8.2 mg/dL (8.4-10.2); CREATININE, SERUM 3.34 mg/dL (0.57-1.11); POTASSIUM 4.6 mmol/L (3.5-5.1)
[2022-08-09] MEDS: INSULIN LISPRO 100 UNIT/1 ML 3ML VIAL SQ SCH ×4 (07:30→20:47)
[2022-08-09] MEDS: Morphine 2mg Syringe 2 MG/ML SYR IV PRN ×2 (09:00→16:34)
[2022-08-09] MEDS: CARVEDILOL 3.125 MG TAB PO SCH ×2 (09:01→16:01)
[2022-08-09] MEDS: AMLODIPINE BESYLATE 5 MG TAB PO SCH (09:01)
[2022-08-09] MEDS: INSULIN GLARGINE 100 UNITS/ML VIAL SQ SCH ×2 (09:29→20:57)
[2022-08-09] MEDS: ISOSORBIDE MONONITRATE 30 MG TAB CR PO SCH (16:02)
[2022-08-09] MEDS: DIPHENHYDRAMINE HCL INJ 50 MG/ML VIAL IV PRN (20:46)
[2022-08-09] MEDS: FUROSEMIDE INJ 10 MG/ML 4 ML VIAL IV SCH (20:46)
[2022-08-09] MEDS: ATORVASTATIN 40 MG TAB PO SCH (20:46)
[2022-08-10] VITALS (10 sets, daily range): BP systolic 108–137; BP diastolic 44–66; PULSE 65–78; RESP 17–24; TEMP 97.1–98.5; O2SAT 94–100
[2022-08-10 05:45] LABS: BASOPHILS # (AUTO) 0.1 (0.0-0.1); BASOPHILS % 1.3 % (0.0-1.0); EOSINOPHILS # (AUTO) 0.4 (0.0-0.4); EOSINOPHILS % 4.4 % (0.0-6.0); HEMATOCRIT 26.5 % (34.2-44.1); HEMOGLOBIN 7.8 g/dL (12.0-16.0); LYMPHOCYTES # (AUTO) 3.3 (1.0-3.2); LYMPHOCYTES % 35.4 % (18.0-39.1); MEAN CORPUSCULAR HEMOGLOBIN 28.3 pg (28-32); MEAN CORPUSCULAR HGB CONC 29.4 g/dL (31-35); MONOCYTES # (AUTO) 0.8 (0.2-0.8); MONOCYTES % 8.1 % (4.4-11.3); NEUTROPHILS # (AUTO) 4.7 (2.1-6.9); NEUTROPHILS % 50.6 % (38.7-80.0); PLATELET COUNT 283 x10e3/uL (140-360); RED BLOOD COUNT 2.76 x10e6/uL (3.6-5.1); RED CELL DISTRIBUTION WIDTH 14.3 % (11.7-14.4)
[2022-08-10 06:20] LABS: ANION GAP 12.7 mmol/L (8-16); CALCIUM 8.1 mg/dL (8.4-10.2); CREATININE, SERUM 3.78 mg/dL (0.57-1.11); POTASSIUM 4.7 mmol/L (3.5-5.1)
[2022-08-10] MEDS: INSULIN LISPRO 100 UNIT/1 ML 3ML VIAL SQ SCH ×4 (07:30→21:08)
[2022-08-10] MEDS: FUROSEMIDE INJ 10 MG/ML 4 ML VIAL IV SCH ×2 (09:03→20:47)
[2022-08-10] MEDS: POTASSIUM CHLORIDE 20 MEQ TAB CR PO SCH (09:04)
[2022-08-10] MEDS: AMLODIPINE BESYLATE 5 MG TAB PO SCH (09:04)
[2022-08-10] MEDS: CARVEDILOL 3.125 MG TAB PO SCH (09:04)
[2022-08-10] MEDS: ISOSORBIDE MONONITRATE 30 MG TAB CR PO SCH (09:04)
[2022-08-10] MEDS: INSULIN GLARGINE 100 UNITS/ML VIAL SQ SCH ×2 (09:17→21:07)
[2022-08-10] MEDS ORDERED: ALBUMIN 25% 25GM 100ML 0.25 GM/ML BTL IV SCH (10:45)
[2022-08-10] MEDS: ALBUMIN 25% 25GM 100ML 100 ML IV SCH ×2 (11:46→20:47)
[2022-08-10] MEDS: CARVEDILOL 12.5 MG TAB PO SCH (16:36)
[2022-08-10] MEDS: ATORVASTATIN 40 MG TAB PO SCH (20:47)
[2022-08-11] VITALS (10 sets, daily range): BP systolic 117–136; BP diastolic 45–61; PULSE 65–75; RESP 16–20; TEMP 97.5–98.5; O2SAT 91–100
[2022-08-11 06:23] LABS: BASOPHILS # (AUTO) 0.1 (0.0-0.1); BASOPHILS % 1.1 % (0.0-1.0); EOSINOPHILS # (AUTO) 0.4 (0.0-0.4); EOSINOPHILS % 4.3 % (0.0-6.0); HEMATOCRIT 27.8 % (34.2-44.1); HEMOGLOBIN 8.2 g/dL (12.0-16.0); LYMPHOCYTES # (AUTO) 2.7 (1.0-3.2); LYMPHOCYTES % 30.1 % (18.0-39.1); MEAN CORPUSCULAR HGB CONC 29.5 g/dL (31-35); MEAN CORPUSCULAR VOLUME 94.9 fL (81-99); MONOCYTES # (AUTO) 0.6 (0.2-0.8); MONOCYTES % 6.7 % (4.4-11.3); NEUTROPHILS # (AUTO) 5.1 (2.1-6.9); NEUTROPHILS % 57.5 % (38.7-80.0); PLATELET COUNT 280 x10e3/uL (140-360); RED BLOOD COUNT 2.93 x10e6/uL (3.6-5.1); RED CELL DISTRIBUTION WIDTH 14.2 % (11.7-14.4)
[2022-08-11 06:40] LABS: CALCIUM 8.5 mg/dL (8.4-10.2); CREATININE, SERUM 3.83 mg/dL (0.57-1.11)
[2022-08-11] MEDS: INSULIN LISPRO 100 UNIT/1 ML 3ML VIAL SQ SCH ×4 (07:30→21:28)
[2022-08-11] MEDS: INSULIN GLARGINE 100 UNITS/ML VIAL SQ SCH ×2 (08:17→21:28)
[2022-08-11] MEDS: ALBUMIN 25% 25GM 100ML 100 ML IV SCH ×2 (08:18→21:12)
[2022-08-11] MEDS: FUROSEMIDE INJ 10 MG/ML 4 ML VIAL IV SCH (08:18)
[2022-08-11] MEDS: AMLODIPINE BESYLATE 5 MG TAB PO SCH (08:18)
[2022-08-11] MEDS: ISOSORBIDE MONONITRATE 30 MG TAB CR PO SCH (08:19)
[2022-08-11] MEDS: POTASSIUM CHLORIDE 20 MEQ TAB CR PO SCH (08:19)
[2022-08-11] MEDS: CARVEDILOL 12.5 MG TAB PO SCH ×2 (08:20→16:11)
[2022-08-11] MEDS: LIDOCAINE 4% PATCH TP SCH (08:20)
[2022-08-11] MEDS: ACETAMINOPHEN 325 MG TAB PO PRN (13:49)
[2022-08-11] MEDS: DIPHENHYDRAMINE HCL INJ 50 MG/ML VIAL IV PRN (17:05)
[2022-08-11] MEDS: ATORVASTATIN 40 MG TAB PO SCH (21:12)
[2022-08-12] VITALS (9 sets, daily range): BP systolic 94–153; BP diastolic 47–83; PULSE 69–82; RESP 16–20; TEMP 97.3–98.2; O2SAT 94–100
[2022-08-12 06:56] LABS: ANION GAP 12.8 mmol/L (8-16); CALCIUM 8.3 mg/dL (8.4-10.2); CREATININE, SERUM 3.94 mg/dL (0.57-1.11); POTASSIUM 4.8 mmol/L (3.5-5.1)
[2022-08-12] MEDS: INSULIN GLARGINE 100 UNITS/ML VIAL SQ SCH ×2 (07:00→22:10)
[2022-08-12] MEDS: INSULIN LISPRO 100 UNIT/1 ML 3ML VIAL SQ SCH ×4 (07:30→22:09)
[2022-08-12] MEDS: AMLODIPINE BESYLATE 5 MG TAB PO SCH (09:00)
[2022-08-12] MEDS: ISOSORBIDE MONONITRATE 30 MG TAB CR PO SCH (10:18)
[2022-08-12] MEDS: LIDOCAINE 4% PATCH TP SCH (10:18)
[2022-08-12] MEDS: CARVEDILOL 12.5 MG TAB PO SCH ×2 (10:18→16:32)
[2022-08-12] MEDS ORDERED: LIDOCAINE HCL 1% LOCAL INJ 20 ML VIAL ONE (12:28)
[2022-08-12] MEDS ORDERED: HEPARIN SOD (PORCINE) 1000 UNIT/ML SDV ONE ×2 (12:28→18:59)
[2022-08-12 13:43] LABS: INR 1.27; PROTHROMBIN TIME 16.4 seconds (11.9-14.5)
[2022-08-12] MEDS ORDERED: ALBUMIN 25% 12.5GM 50ML 50 ML IV ONE (20:09)
[2022-08-12] MEDS: ATORVASTATIN 40 MG TAB PO SCH (21:00)
[2022-08-13] VITALS (11 sets, daily range): BP systolic 121–152; BP diastolic 50–83; PULSE 70–92; RESP 18–20; TEMP 97.1–98.9; O2SAT 96–98
[2022-08-13 07:23] LABS: ANION GAP 12.9 mmol/L (8-16); CALCIUM 8.5 mg/dL (8.4-10.2); CREATININE, SERUM 2.57 mg/dL (0.57-1.11); POTASSIUM 3.9 mmol/L (3.5-5.1)
[2022-08-13] MEDS: INSULIN LISPRO 100 UNIT/1 ML 3ML VIAL SQ SCH ×4 (07:30→21:00)
[2022-08-13] MEDS: LIDOCAINE 4% PATCH TP SCH (09:03)
[2022-08-13] MEDS: ISOSORBIDE MONONITRATE 30 MG TAB CR PO SCH (09:04)
[2022-08-13] MEDS: AMLODIPINE BESYLATE 5 MG TAB PO SCH (09:04)
[2022-08-13] MEDS: CARVEDILOL 12.5 MG TAB PO SCH ×2 (09:05→16:47)
[2022-08-13] MEDS: INSULIN GLARGINE 100 UNITS/ML VIAL SQ SCH ×2 (09:07→19:33)
[2022-08-13] MEDS ORDERED: HEPARIN SOD (PORCINE) 1000 UNIT/ML SDV IV PRN (09:30)
[2022-08-13] MEDS ORDERED: SODIUM CHLORIDE 0.9% 1000ML 2,000 ML IV PRN (09:30)
[2022-08-13] MEDS ORDERED: MANNITOL 25% 12.5GM/50 ML VIAL IV PRN (09:30)
[2022-08-13] MEDS ORDERED: SPIRONOLACTONE 25 MG TAB PO ONE (10:45)
[2022-08-13] MEDS: SPIRONOLACTONE 25 MG TAB PO SCH (16:46)
[2022-08-13] MEDS: ONDANSETRON HCL INJ 2MG/ML 2ML 2 MG/ML VIAL IV PRN (21:01)
[2022-08-13] MEDS: ATORVASTATIN 40 MG TAB PO SCH (21:05)
[2022-08-14] VITALS (10 sets, daily range): BP systolic 112–139; BP diastolic 46–64; PULSE 66–76; RESP 18–20; TEMP 97.1–98.2; O2SAT 97–100
[2022-08-14] MEDS: INSULIN LISPRO 100 UNIT/1 ML 3ML VIAL SQ SCH ×4 (07:30→20:51)
[2022-08-14 08:06] LABS: ANION GAP 12.7 mmol/L (8-16); CALCIUM 8.4 mg/dL (8.4-10.2); MAGNESIUM 1.8 MG/DL (1.3-2.1); POTASSIUM 3.7 mmol/L (3.5-5.1)
[2022-08-14 08:49] LABS: CREATININE, SERUM 2.27 mg/dL (0.57-1.11)
[2022-08-14] MEDS: AMLODIPINE BESYLATE 5 MG TAB PO SCH (09:10)
[2022-08-14] MEDS: SPIRONOLACTONE 25 MG TAB PO SCH ×2 (09:10→16:38)
[2022-08-14] MEDS: LIDOCAINE 4% PATCH TP SCH (09:10)
[2022-08-14] MEDS: CARVEDILOL 12.5 MG TAB PO SCH ×2 (09:11→16:38)
[2022-08-14] MEDS: ISOSORBIDE MONONITRATE 30 MG TAB CR PO SCH (09:12)
[2022-08-14] MEDS: INSULIN GLARGINE 100 UNITS/ML VIAL SQ SCH ×2 (09:15→20:52)
[2022-08-14 11:50] LABS: CREATININE,URINE RANDOM 65.49 mg/dL (47-110)
[2022-08-14 12:24] LABS: TOTAL PROTEIN, URINE 1817.6 mg/dL (1-14)
[2022-08-14] MEDS: ACETAMINOPHEN 325 MG TAB PO PRN (13:51)
[2022-08-14] MEDS: ATORVASTATIN 40 MG TAB PO SCH (20:49)
[2022-08-15] VITALS (10 sets, daily range): BP systolic 114–148; BP diastolic 44–69; PULSE 60–70; RESP 16–18; TEMP 97.4–99; O2SAT 94–98
[2022-08-15 06:21] LABS: BASOPHILS # (AUTO) 0.1 (0.0-0.1); BASOPHILS % 0.8 % (0.0-1.0); EOSINOPHILS # (AUTO) 0.4 (0.0-0.4); EOSINOPHILS % 3.4 % (0.0-6.0); HEMATOCRIT 27.9 % (34.2-44.1); HEMOGLOBIN 8.6 g/dL (12.0-16.0); LYMPHOCYTES # (AUTO) 2.8 (1.0-3.2); LYMPHOCYTES % 26.3 % (18.0-39.1); MEAN CORPUSCULAR HGB CONC 30.8 g/dL (31-35); MEAN CORPUSCULAR VOLUME 90.9 fL (81-99); MONOCYTES # (AUTO) 0.8 (0.2-0.8); MONOCYTES % 7.8 % (4.4-11.3); NEUTROPHILS # (AUTO) 6.5 (2.1-6.9); NEUTROPHILS % 61.3 % (38.7-80.0); PLATELET COUNT 264 x10e3/uL (140-360); RED BLOOD COUNT 3.07 x10e6/uL (3.6-5.1); RED CELL DISTRIBUTION WIDTH 13.9 % (11.7-14.4)
[2022-08-15] MEDS: INSULIN LISPRO 100 UNIT/1 ML 3ML VIAL SQ SCH ×4 (07:30→22:48)
[2022-08-15 07:35] LABS: ANION GAP 13.6 mmol/L (8-16); CALCIUM 8.2 mg/dL (8.4-10.2); CREATININE, SERUM 3.5 mg/dL (0.57-1.11); MAGNESIUM 1.9 MG/DL (1.3-2.1); POTASSIUM 3.6 mmol/L (3.5-5.1)
[2022-08-15] MEDS: INSULIN GLARGINE 100 UNITS/ML VIAL SQ SCH ×2 (08:17→19:00)
[2022-08-15] MEDS: ISOSORBIDE MONONITRATE 30 MG TAB CR PO SCH (09:06)
[2022-08-15] MEDS: AMLODIPINE BESYLATE 5 MG TAB PO SCH (09:06)
[2022-08-15] MEDS: SPIRONOLACTONE 25 MG TAB PO SCH (09:07)
[2022-08-15] MEDS: LIDOCAINE 4% PATCH TP SCH (09:07)
[2022-08-15] MEDS: CARVEDILOL 12.5 MG TAB PO SCH ×2 (09:07→17:00)
[2022-08-15] MEDS: ATORVASTATIN 40 MG TAB PO SCH (20:34)
[2022-08-16] VITALS (19 sets, daily range): BP systolic 113–166; BP diastolic 50–91; PULSE 69–89; RESP 15–20; TEMP 97.8–100.4; O2SAT 95–100
[2022-08-16] MEDS: ONDANSETRON HCL INJ 2MG/ML 2ML 2 MG/ML VIAL IV PRN (02:37)
[2022-08-16] MEDS: INSULIN GLARGINE 100 UNITS/ML VIAL SQ SCH ×2 (07:00→19:00)
[2022-08-16] MEDS: INSULIN LISPRO 100 UNIT/1 ML 3ML VIAL SQ SCH ×4 (07:27→21:00)
[2022-08-16] MEDS: CARVEDILOL 12.5 MG TAB PO SCH ×2 (09:00→17:00)
[2022-08-16] MEDS: LIDOCAINE 4% PATCH TP SCH (09:00)
[2022-08-16] MEDS: ISOSORBIDE MONONITRATE 30 MG TAB CR PO SCH (09:00)
[2022-08-16] MEDS: AMLODIPINE BESYLATE 5 MG TAB PO SCH (09:00)
[2022-08-16] MEDS: SODIUM FERRIC GLUCONATE COMPLX 125 MG in SODIUM CHLORIDE 0.9% 100 ML IV SCH (09:18)
[2022-08-16] MEDS ORDERED: LIDOCAINE HCL 2% LOCAL 20 ML VIAL ONE (13:13)
[2022-08-16] MEDS ORDERED: HEPARIN SOD (PORCINE) 1000 UNIT/ML 30ML ONE (13:13)
[2022-08-16] MEDS ORDERED: HEPARIN SOD/SOD CHLORIDE 2,000 ML ONE (13:14)
[2022-08-16] MEDS ORDERED: SODIUM CHLORIDE 0.9% 1000ML 1,000 ML ONE (13:14)
[2022-08-16] MEDS ORDERED: NITROGLYCERIN/D5W 200 MCG/ML 250 ML ONE (13:14)
[2022-08-16] MEDS ORDERED: IOPAMIDOL 370 MG/ML 100 ML INFUS..BTL INJ ONE (13:14)
[2022-08-16] MEDS ORDERED: VERAPAMIL HCL 2.5 MG/ML 2 ML VIAL ONE (13:14)
[2022-08-16] MEDS ORDERED: MIDAZOLAM HCL 2 MG/2 ML VIAL ONE (13:22)
[2022-08-16] MEDS ORDERED: FENTANYL CITRATE/PF 100MCG/2 ML INJ ONE (13:23)
[2022-08-16 18:03] LABS: INR 1.18; PROTHROMBIN TIME 15.5 seconds (11.9-14.5)
[2022-08-16] MEDS: ATORVASTATIN 40 MG TAB PO SCH (20:27)
[2022-08-16] MEDS: ACETAMINOPHEN 325 MG TAB PO PRN (22:36)
[2022-08-17] VITALS (9 sets, daily range): BP systolic 110–153; BP diastolic 51–67; PULSE 62–78; RESP 16–22; TEMP 97.5–99.1; O2SAT 92–100
[2022-08-17] MEDS: INSULIN GLARGINE 100 UNITS/ML VIAL SQ SCH ×2 (07:00→20:35)
[2022-08-17] MEDS: INSULIN LISPRO 100 UNIT/1 ML 3ML VIAL SQ SCH ×4 (07:30→20:35)
[2022-08-17] MEDS: CARVEDILOL 12.5 MG TAB PO SCH ×2 (09:00→16:27)
[2022-08-17] MEDS: LIDOCAINE 4% PATCH TP SCH (09:00)
[2022-08-17] MEDS: AMLODIPINE BESYLATE 5 MG TAB PO SCH (09:00)
[2022-08-17] MEDS: ISOSORBIDE MONONITRATE 30 MG TAB CR PO SCH (09:00)
[2022-08-17] MEDS: SODIUM FERRIC GLUCONATE COMPLX 125 MG in SODIUM CHLORIDE 0.9% 100 ML IV SCH (10:25)
[2022-08-17] MEDS ORDERED: FENTANYL CITRATE/PF 100MCG/2 ML INJ ONE (13:56)
[2022-08-17] MEDS ORDERED: MIDAZOLAM HCL 2 MG/2 ML VIAL ONE (13:56)
[2022-08-17] MEDS ORDERED: SODIUM CHLORIDE 0.9% 250ML 250 ML ONE (13:57)
[2022-08-17] MEDS ORDERED: HEPARIN SOD (PORCINE) 1000 UNIT/ML SDV ONE (14:25)
[2022-08-17] MEDS: ATORVASTATIN 40 MG TAB PO SCH (20:30)
[2022-08-18] VITALS (10 sets, daily range): BP systolic 94–140; BP diastolic 42–83; PULSE 61–76; RESP 17–20; TEMP 97.4–98.5; O2SAT 97–100
[2022-08-18 05:35] LABS: BASOPHILS # (AUTO) 0.1 (0.0-0.1); BASOPHILS % 1.1 % (0.0-1.0); EOSINOPHILS # (AUTO) 0.3 (0.0-0.4); HEMATOCRIT 31.6 % (34.2-44.1); HEMOGLOBIN 9.3 g/dL (12.0-16.0); LYMPHOCYTES # (AUTO) 3.3 (1.0-3.2); LYMPHOCYTES % 29.5 % (18.0-39.1); MEAN CORPUSCULAR HEMOGLOBIN 27.2 pg (28-32); MEAN CORPUSCULAR HGB CONC 29.4 g/dL (31-35); MEAN CORPUSCULAR VOLUME 92.4 fL (81-99); MONOCYTES # (AUTO) 1.2 (0.2-0.8); MONOCYTES % 10.9 % (4.4-11.3); NEUTROPHILS # (AUTO) 6.2 (2.1-6.9); NEUTROPHILS % 55.2 % (38.7-80.0); PLATELET COUNT 254 x10e3/uL (140-360); RED BLOOD COUNT 3.42 x10e6/uL (3.6-5.1); RED CELL DISTRIBUTION WIDTH 13.5 % (11.7-14.4)
[2022-08-18 05:57] LABS: ALBUMIN 2.7 g/dL (3.5-5.0); ALBUMIN/GLOBULIN RATIO 0.6 (0.8-2.0); ANION GAP 13.7 mmol/L (8-16); CALCIUM 8.5 mg/dL (8.4-10.2); CREATININE, SERUM 3.79 mg/dL (0.57-1.11); MAGNESIUM 1.9 MG/DL (1.3-2.1); POTASSIUM 3.7 mmol/L (3.5-5.1)
[2022-08-18] MEDS: INSULIN GLARGINE 100 UNITS/ML VIAL SQ SCH ×2 (07:00→21:32)
[2022-08-18] MEDS: INSULIN LISPRO 100 UNIT/1 ML 3ML VIAL SQ SCH ×4 (07:30→21:31)
[2022-08-18] MEDS: ISOSORBIDE MONONITRATE 30 MG TAB CR PO SCH (08:21)
[2022-08-18] MEDS: LIDOCAINE 4% PATCH TP SCH (08:21)
[2022-08-18] MEDS: CARVEDILOL 12.5 MG TAB PO SCH ×2 (08:22→16:27)
[2022-08-18] MEDS: AMLODIPINE BESYLATE 5 MG TAB PO SCH (08:22)
[2022-08-18] MEDS: LOSARTAN POTASSIUM 25 MG TAB PO SCH (11:45)
[2022-08-18] MEDS ORDERED: ONDANSETRON HCL 4 MG ORAL DISINTEGRATING TAB PO PRN (12:45)
[2022-08-18] MEDS: SODIUM FERRIC GLUCONATE COMPLX 125 MG in SODIUM CHLORIDE 0.9% 100 ML IV SCH (15:56)
[2022-08-18] MEDS: ATORVASTATIN 40 MG TAB PO SCH (21:20)
[2022-08-19] VITALS (10 sets, daily range): BP systolic 85–124; BP diastolic 34–60; PULSE 60–74; RESP 18–20; TEMP 97.4–98.6; O2SAT 95–100
[2022-08-19] MEDS: LOSARTAN POTASSIUM 25 MG TAB PO SCH (08:46)
[2022-08-19] MEDS: AMLODIPINE BESYLATE 5 MG TAB PO SCH (08:46)
[2022-08-19] MEDS: CARVEDILOL 12.5 MG TAB PO SCH ×2 (08:46→17:00)
[2022-08-19] MEDS: SODIUM FERRIC GLUCONATE COMPLX 125 MG in SODIUM CHLORIDE 0.9% 100 ML IV SCH (08:47)
[2022-08-19] MEDS: ISOSORBIDE MONONITRATE 30 MG TAB CR PO SCH (08:47)
[2022-08-19] MEDS: INSULIN GLARGINE 100 UNITS/ML VIAL SQ SCH ×2 (08:49→20:54)
[2022-08-19] MEDS: INSULIN LISPRO 100 UNIT/1 ML 3ML VIAL SQ SCH ×4 (08:49→20:54)
[2022-08-19] MEDS: LIDOCAINE 4% PATCH TP SCH (08:50)
[2022-08-19] MEDS: ATORVASTATIN 40 MG TAB PO SCH (20:46)
[2022-08-20] VITALS (8 sets, daily range): BP systolic 105–142; BP diastolic 44–71; PULSE 61–80; RESP 18–20; TEMP 97.5–98.4; O2SAT 96–100
[2022-08-20 06:52] LABS: BASOPHILS # (AUTO) 0.2 (0.0-0.1); BASOPHILS % 1.1 % (0.0-1.0); EOSINOPHILS # (AUTO) 0.4 (0.0-0.4); EOSINOPHILS % 2.9 % (0.0-6.0); HEMATOCRIT 30.9 % (34.2-44.1); HEMOGLOBIN 9.2 g/dL (12.0-16.0); LYMPHOCYTES # (AUTO) 4.6 (1.0-3.2); LYMPHOCYTES % 31.6 % (18.0-39.1); MEAN CORPUSCULAR HGB CONC 29.8 g/dL (31-35); MEAN CORPUSCULAR VOLUME 94.2 fL (81-99); MONOCYTES # (AUTO) 0.9 (0.2-0.8); MONOCYTES % 6.4 % (4.4-11.3); NEUTROPHILS # (AUTO) 8.4 (2.1-6.9); NEUTROPHILS % 57.5 % (38.7-80.0); PLATELET COUNT 295 x10e3/uL (140-360); RED BLOOD COUNT 3.28 x10e6/uL (3.6-5.1); RED CELL DISTRIBUTION WIDTH 13.5 % (11.7-14.4)
[2022-08-20] MEDS: INSULIN GLARGINE 100 UNITS/ML VIAL SQ SCH ×2 (07:00→19:00)
[2022-08-20 07:12] LABS: ANION GAP 15.7 mmol/L (8-16); CALCIUM 8.5 mg/dL (8.4-10.2); MAGNESIUM 1.9 MG/DL (1.3-2.1); POTASSIUM 3.7 mmol/L (3.5-5.1)
[2022-08-20] MEDS: INSULIN LISPRO 100 UNIT/1 ML 3ML VIAL SQ SCH ×3 (07:30→16:18)
[2022-08-20 08:05] LABS: CREATININE, SERUM 4.47 mg/dL (0.57-1.11)
[2022-08-20] MEDS: LIDOCAINE 4% PATCH TP SCH (08:38)
[2022-08-20] MEDS: CARVEDILOL 12.5 MG TAB PO SCH ×2 (08:39→16:11)
[2022-08-20] MEDS: LOSARTAN POTASSIUM 25 MG TAB PO SCH (08:39)
[2022-08-20] MEDS: AMLODIPINE BESYLATE 5 MG TAB PO SCH (08:39)
[2022-08-20] MEDS: ISOSORBIDE MONONITRATE 30 MG TAB CR PO SCH (08:39)
[2022-08-20] MEDS: SODIUM FERRIC GLUCONATE COMPLX 125 MG in SODIUM CHLORIDE 0.9% 100 ML IV SCH (08:44)
[2022-08-20] MEDS ORDERED: COZAAR25 MG PO (16:12)
[2022-08-20] MEDS ORDERED: COREG12.5 MG PO (16:12)
[2022-08-20] MEDS ORDERED: Isosorbide Mononitrate PO (16:12)
[2022-08-20] MEDS ORDERED: Insulin Glargine SQ (16:12)
== END 2022-08-20 20:26 | disposition home or self-care (01) | DRG 682 ==
LOC: ER 10:32 → ERHOLD 12:40 → ICU 15:54 → OBSVTOIN 08-08 07:45 → MED/SURG2 08-08 12:24
PROVIDERS: ADMIT Internal Medicine; ATTEND Internal Medicine
PROC: 5A1D70Z Performance of Urinary Filtration, Intermittent, Less than 6 Hours Per Day (ICD-10-PCS; principal; 2022-08-12)
PROC: 05HM33Z Insertion of Infusion Device into Right Internal Jugular Vein, Percutaneous Approach (ICD-10-PCS; 2022-08-12)
PROC: 4A023N7 Measurement of Cardiac Sampling and Pressure, Left Heart, Percutaneous Approach (ICD-10-PCS; 2022-08-16)
PROC: B2111ZZ Fluoroscopy of Multiple Coronary Arteries using Low Osmolar Contrast (ICD-10-PCS; 2022-08-16)
PROC: 02H633Z Insertion of Infusion Device into Right Atrium, Percutaneous Approach (ICD-10-PCS; 2022-08-17)
DX: I12.0 Hypertensive chronic kidney disease with stage 5 chronic kidney disease or end stage renal disease (principal); I21.A1 Myocardial infarction type 2; I50.23 Acute on chronic systolic (congestive) heart failure; N18.6 End stage renal disease; E87.20 Acidosis, unspecified; Z68.41 Body mass index [BMI] 40.0-44.9, adult; N17.9 Acute kidney failure, unspecified; E11.22 Type 2 diabetes mellitus with diabetic chronic kidney disease; E11.51 Type 2 diabetes mellitus with diabetic peripheral angiopathy without gangrene; D63.1 Anemia in chronic kidney disease; E78.5 Hyperlipidemia, unspecified; J44.9 Chronic obstructive pulmonary disease, unspecified; R09.02 Hypoxemia; E11.42 Type 2 diabetes mellitus with diabetic polyneuropathy; E11.69 Type 2 diabetes mellitus with other specified complication; E11.43 Type 2 diabetes mellitus with diabetic autonomic (poly)neuropathy; E87.79 Other fluid overload; E11.21 Type 2 diabetes mellitus with diabetic nephropathy; G89.29 Other chronic pain; E88.09 Other disorders of plasma-protein metabolism, not elsewhere classified; E66.01 Morbid (severe) obesity due to excess calories; Z79.02 Long term (current) use of antithrombotics/antiplatelets; Z89.511 Acquired absence of right leg below knee; Z79.4 Long term (current) use of insulin
CPT/HCPCS: 0223U; 36415; 36556; 36558; 36600; 51700; 71045; 74470; 76937; 77001; 80048; 80053; 81001; 81050; 82270; 82570; 82805; 82948; 83540; 83735; 83880; 84100; 84156; 84466; 84484; 85025; 85610; 87040; 93005; 93306; 93458; 94760; 94799; 96372; 99152; 99153; 99285; C1752; C1769; C1887; C1892; G0378; J0690; J1200; J1644; J1815; J1940; J2001; J2250; J2270; J2405; J2916; J7030; J7050; P9047; Q9967

== ENCOUNTER 2022-12-13 15:56 | Emergency (ER) | payer SELFPAY ==
[~2022-12-13] VITALS: Ht 157.5 cm; Wt 81.2 kg
[~2022-12-13 15:56] MED LIST changes: +CLINDAMYCIN HC300 MG PO; +COREG12.5 MG PO; +COZAAR25 MG PO; +INSULIN GL100 UNIT/3 SC; +Insulin Glargine SQ; +Isosorbide Mononitrate PO; +METRONIDAZOLE250 MG PO
[2022-12-13] MEDS ORDERED: ONDANSETRON HCL INJ 2MG/ML 2ML 2 MG/ML VIAL IV STA (16:34)
[2022-12-13 16:38] LABS: BASOPHILS # (AUTO) 0.2 (0.0-0.1); BASOPHILS % 1.1 % (0.0-1.0); EOSINOPHILS # (AUTO) 0.2 (0.0-0.4); EOSINOPHILS % 1.5 % (0.0-6.0); HEMATOCRIT 35.4 % (34.2-44.1); HEMOGLOBIN 11.8 g/dL (12.0-16.0); LYMPHOCYTES # (AUTO) 2.5 (1.0-3.2); LYMPHOCYTES % 16.9 % (18.0-39.1); MEAN CORPUSCULAR HEMOGLOBIN 29.9 pg (28-32); MEAN CORPUSCULAR HGB CONC 33.3 g/dL (31-35); MEAN CORPUSCULAR VOLUME 89.6 fL (81-99); MONOCYTES # (AUTO) 0.7 (0.2-0.8); MONOCYTES % 4.5 % (4.4-11.3); NEUTROPHILS # (AUTO) 11.2 (2.1-6.9); NEUTROPHILS % 75.7 % (38.7-80.0); PLATELET COUNT 358 x10e3/uL (140-360); RED BLOOD COUNT 3.95 x10e6/uL (3.6-5.1); RED CELL DISTRIBUTION WIDTH 14.5 % (11.7-14.4); WHITE BLOOD COUNT 14.83 x10e3/uL (4.8-10.8)
[2022-12-13] MEDS ORDERED: SODIUM CHLORIDE 0.9% 250ML 250 ML IV ONE (16:45)
[2022-12-13 16:53] LABS: ALBUMIN 2.8 g/dL (3.5-5.0); ALBUMIN/GLOBULIN RATIO 0.5 (0.8-2.0); ANION GAP 17.2 mmol/L (8-16); CALCIUM 8.8 mg/dL (8.4-10.2); CREATININE, SERUM 2.08 mg/dL (0.57-1.11); MAGNESIUM 1.9 MG/DL (1.3-2.1); POTASSIUM 3.2 mmol/L (3.5-5.1)
[2022-12-13 17:01] LABS: CLARITY,URINE CLEAR (CLEAR); COLOR,URINE YELLOW (YELLOW); KETONES,URINE TRACE (NEGATIVE); LEUKOCYTE ESTERASE ,URINE NEGATIVE (NEGATIVE); NITRITE,URINE NEGATIVE (NEGATIVE); PROTEIN,URINE DIPSTICK >=300 (NEGATIVE); URINE UROBILINOGEN 0.2 mg/dL (0.2 - 1)
[2022-12-13 17:12] LABS: AMORPHOUS SEDIMENT,URINE FEW (FEW); BACTERIA,URINE FEW /HPF; EPITHELIAL CELLS,URINE FEW /LPF; HYALINE CASTS 0-1 (0-1); WBC,URINE (MAN) 0-5 /HPF (0-5)
[2022-12-13 17:28] VITALS: O2SAT 98
[2022-12-13] MEDS ORDERED: ONDANSETRON ODT4 MG PO (17:31)
== END 2022-12-13 18:45 | disposition home or self-care (01) ==
LOC: ER 16:04
DX: R11.0 Nausea (principal); R53.1 Weakness; I12.0 Hypertensive chronic kidney disease with stage 5 chronic kidney disease or end stage renal disease; E11.22 Type 2 diabetes mellitus with diabetic chronic kidney disease; E11.65 Type 2 diabetes mellitus with hyperglycemia; N18.6 End stage renal disease; Z99.2 Dependence on renal dialysis; J44.9 Chronic obstructive pulmonary disease, unspecified; I50.9 Heart failure, unspecified; E78.5 Hyperlipidemia, unspecified; F41.9 Anxiety disorder, unspecified; Z95.5 Presence of coronary angioplasty implant and graft
CPT/HCPCS: 36415; 71045; 80053; 81001; 83735; 84484; 85025; 93005; 99284

== ENCOUNTER 2022-12-20 11:24 | Emergency (ER) | payer SELFPAY ==
[~2022-12-20] VITALS: Ht 157.5 cm; Wt 81.2 kg
[2022-12-20 11:45] VITALS: O2SAT 98
[2022-12-20 12:05] LABS: BASOPHILS # (AUTO) 0.1 (0.0-0.1); BASOPHILS % 0.9 % (0.0-1.0); EOSINOPHILS # (AUTO) 0.3 (0.0-0.4); HEMATOCRIT 37.9 % (34.2-44.1); HEMOGLOBIN 12.5 g/dL (12.0-16.0); LYMPHOCYTES # (AUTO) 2.6 (1.0-3.2); MEAN CORPUSCULAR HEMOGLOBIN 29.9 pg (28-32); MEAN CORPUSCULAR VOLUME 90.7 fL (81-99); MONOCYTES # (AUTO) 0.6 (0.2-0.8); MONOCYTES % 4.2 % (4.4-11.3); NEUTROPHILS % 74.7 % (38.7-80.0); PLATELET COUNT 327 x10e3/uL (140-360); RED BLOOD COUNT 4.18 x10e6/uL (3.6-5.1); WHITE BLOOD COUNT 14.69 x10e3/uL (4.8-10.8)
[2022-12-20 12:40] LABS: ANION GAP 16.8 mmol/L (8-16); CALCIUM 8.6 mg/dL (8.4-10.2); CREATININE, SERUM 5.14 mg/dL (0.57-1.11); POTASSIUM 5.8 mmol/L (3.5-5.1)
== END 2022-12-20 12:33 | disposition home or self-care (01) ==
LOC: ER 11:34
DX: R10.9 Unspecified abdominal pain (principal); I12.0 Hypertensive chronic kidney disease with stage 5 chronic kidney disease or end stage renal disease; E11.22 Type 2 diabetes mellitus with diabetic chronic kidney disease; N18.6 End stage renal disease; Z99.2 Dependence on renal dialysis; J44.9 Chronic obstructive pulmonary disease, unspecified; I50.9 Heart failure, unspecified; I25.10 Atherosclerotic heart disease of native coronary artery without angina pectoris; E78.5 Hyperlipidemia, unspecified; F41.9 Anxiety disorder, unspecified
CPT/HCPCS: 36415; 80048; 85025; 93005; 99284